=== PATIENT | female | born 1965 | race Caucasian/White ===

== ENCOUNTER 2021-01-22 08:45 | Outpatient (CLI) | payer BC, SELFPAY ==
[2021-01-22 09:08] LABS: Basophils Absolute Auto 0.1 K/mm3 (0.0-0.1); Basophils Percent Auto 0.7 % (0.2-1.2); Eosinophils Absolute Auto 0.3 K/mm3 (0-0.3); Eosinophils Percent Auto 2.8 % (0-4.4); Hematocrit 36.6 % (37.0-47.0); Hemoglobin 11.8 g/dL (12.0-15.0); Immature Granulocyte Absolute 0.03 K/mm3 (0.00-0.031); Immature Granulocyte Percent A 0.3 % (0-0.5); Lymphocytes Absolute Auto 2.36 K/mm3 (0.9-3.2); Lymphocytes Percent Auto 25.6 % (18.3-44.2); Mean Corpuscular HGB Conc 32.2 g/dl (32-36); Mean Corpuscular Hemoglobin 28.3 pg (26-34); Mean Corpuscular Volume 87.8 fl (80-100); Mean Platelet Volume 8.5 fl (7.4-10.4); Monocytes Absolute Auto 0.8 K/mm3 (0.1-0.6); Monocytes Percent Auto 8.6 % (2.6-8.5); Neutrophils Absolute Auto 5.7 K/mm3 (1.3-6.7); Platelet Count Result 461 k/mm3 (150-375); Red Blood Count 4.17 M/mm3 (4.2-5.4); Red Cell Distribution Width 14.2 % (11.5-14.5); White Blood Count 9.2 K/mm3 (4.5-10.0)
[2021-01-22 09:24] LABS: Alanine Aminotransferase 26 U/L (4-35); Albumin Level 4.5 g/dL (3.5-5.1); Alkaline Phosphatase 85 U/L (38-126); Anion Gap 10 mmol/L (8-16); Aspartate Amino Transferase 27 U/L (14-36); Bilirubin,Total 0.4 mg/dL (0.2-1.3); Blood Urea Nitrogen 15 mg/dL (7-17); CRP 1.9 mg/dL (<1.0); Calcium 9.2 mg/dL (8.4-10.2); Carbon Dioxide 29 mmol/L (22-30); Chloride 100 mmol/L (98-107); Estimated Glomerular Filt Rate > 60; Glucose 101 mg/dL (65-110); Potassium 3.4 mmol/L (3.4-5.0); Sodium 139 mmol/L (137-145)
[2021-01-22 09:27] LABS: Hemoglobin A1C 5.7 % (<5.7)
[2021-01-22 09:42] LABS: Add Urine Microscopic? YES; Appearance Urine Cloudy (Clear); Bilirubin Urine Negative (Negative); Blood Urine Negative (Negative); Color Urine Amber (Yellow); Glucose Urine UA Negative (Negative); Hyaline Casts Urine 30-49 /lpf; Ketones Urine Negative (Negative); Leukocyte Esterase Ur Trace LEU/UL (Negative); Mucus Urine Moderate /lpf; Nitrate Urine Negative (Negative); Protein Urine 1+ mg/dL (Negative); Squamous Epithelial Cell Urine Many /hpf (Few); Urobilinogen Urine Negative mg/dL (<2.0)
[2021-01-22 10:07] LABS: Erythrocyte Sedimentation Rate 45 mm/hr (0-20)
[2021-01-22 10:54] LABS: Vitamin D 25 Hydroxy 25.8 ng/mL
[2021-01-22 16:18] LABS: Cholesterol 240 mg/dL (0-200); HDL Direct 70 mg/dL; Triglycerides 154 mg/dL (<150)
[2021-01-22 16:30] LABS: LDL Cholesterol Direct 119 mg/dL
[2021-01-25 05:52] LABS: C-Peptide 1.24 ng/mL (0.80-3.85)
[2021-01-25 21:01] LABS: Homocysteine 7.2 umol/L (<10.4)
[2021-01-26 04:42] LABS: Insulin Level Total 4.4 uIU/mL (<=19.6)
== END 2021-01-22 08:46 | disposition home or self-care (01) ==
LOC: ANHLAB 08:48
PROVIDERS: PCP Internal Medicine; Visit Provider Internal Medicine
DX: Z51.81 Encounter for therapeutic drug level monitoring (principal); Z79.899 Other long term (current) drug therapy; Z78.0 Asymptomatic menopausal state; Z00.00 Encounter for general adult medical examination without abnormal findings
CPT/HCPCS: 36415; 80053; 80061; 81001; 82306; 83036; 83090; 83525; 84439; 84443; 84681; 85025; 85652; 86140; 87086

== ENCOUNTER → 2021-01-25 09:36 | Outpatient (CLI) | payer BC, SELFPAY ==
--- NOTE | ~2021-01-25 | CT_ITS ---
EXAMINATION: CTA chest DATE: 01/25/2021 11:20 INDICATION: Other disorder of the circulatory system, asymmetric blood pressures TECHNIQUE: Computed tomographic angiography (CTA) of the chest was performed with 100 mL Omnipque-350 intravenous contrast. Maximum intensity projection 3D-reconstructions of the aorta and other arterie s were constructed by the technologist on a separate workstation. The dose-length product (DLP) was 4 31.76 mGy-cm. Automated exposure control and iterative reconstruction technique were employed. COMPARISON: None. FINDINGS: The aorta is normal without evidence of dissection or aneurysm. The great vessels are also normal in appearance without stenosis, aneurysm, or dissection. A 3 mm pleural-based nodule is noted in the left lower lobe. There is a 2 mm pleural-based nodule of the right lower lobe. No pleural effu shelbie or pneumothorax is identified. The lungs are free of acute opacities. No pathologically enlarged thoracic lymph nodes are identified. The heart size is normal. There is mild thoracic spondylosis. IMPRESSION: 1. Unremarkable CTA chest. Reviewed, dictated and finalized at location A. IMPRESSION: 1. Unremarkable CTA chest.
--- NOTE | ~2021-01-25 | XR_ITS ---
EXAMINATION: XR lumbar spine 6V w bending DATE: 01/25/2021 10:25 INDICATION: Low back pain TECHNIQUE: Anteroposterior, lateral in neutral, flexion and extension, and bilateral oblique views of the lumbar spine, and cone-down lateral view of the lumbosacral junction were obtained. COMPARISON: None. FINDINGS: Vertebral body alignment is maintained. There is no laxity with flexion or extension. The v ertebral body heights are normal. There is mild loss of intervertebral disc space height at L3-4. The re is no fracture. IMPRESSION: 1. Mild lumbar spondylosis without acute findings. Reviewed, dictated and finalized at location A.
--- NOTE | ~2021-01-25 | CT_ITS ---
EXAMINATION: CT abdomen pelvis wo con DATE: 01/25/2021 11:20 INDICATION: Microscopic hematuria TECHNIQUE: Computed tomography (CT) of the abdomen and pelvis was performed without intravenous contr ast. The dose-length product (DLP) was 281.45 mGy-cm. Automated exposure control and iterative recons truction technique were employed. COMPARISON: None FINDINGS: The lung bases are clear. The heart size is normal. The liver, spleen, pancreas, gallbladde r, and adrenal glands are normal. The kidneys are unremarkable. There is a punctate nonobstructing st one of the right kidney lower pole. No stones are identified in the left kidney, ureters, or bladder. There is no hydronephrosis or hydroureter. No pathologically enlarged abdominal or pelvic lymph node s are identified. There is no free intraperitoneal gas or evidence of bowel obstruction. The appendix is normal. There is mild lumbar spondylosis. There is a tiny fat-containing umbilical hernia. IMPRESSION: 1. No CT correlate for the patient's symptoms. Reviewed, dictated and finalized at location A.
--- NOTE | ~2021-01-25 | XR_ITS ---
EXAMINATION: XR hip BI 2V w AP pelvis DATE: 01/25/2021 10:25 INDICATION: Bilateral hip pain TECHNIQUE: AP view the pelvis and two views of each hip were obtained. COMPARISON: None. FINDINGS: Bone alignment is normal. There is no fracture. There is mild osteoarthritis of the hips. T he soft tissues are unremarkable. IMPRESSION: 1. Mild hip osteoarthritis without acute abnormality. Reviewed, dictated and finalized at location A.
--- NOTE | ~2021-01-25 | XR_ITS ---
EXAMINATION:XR cervical spine min 6V DATE: 01/25/2021 10:25 INDICATION: Neck pain TECHNIQUE: AP, lateral in neutral, flexion, extension, lateral swimmers and odontoid views of the cer vical spine are provided. COMPARISON: None FINDINGS: There are 2 mm of anterolisthesis of C4 on C5. There is no change with flexion and slight i mprovement with extension. The odontoid is intact. No fracture is identified. The vertebral body heig hts are normal. There is moderate loss of intervertebral disc space height at C5-6 and C6-7. Small de generative osteophytes project from the anterior endplates of multiple vertebral bodies. There is mod erate to severe facet and uncovertebral joint osteoarthritis of the mid and lower cervical spine. Pre vertebral soft tissues are normal. IMPRESSION: 1. Moderate cervical spondylosis without acute findings. Reviewed, dictated and finalized at location A.
== END ==
PROVIDERS: PCP Internal Medicine; Visit Provider Internal Medicine
DX: R31.29 Other microscopic hematuria (principal); M47.812 Spondylosis without myelopathy or radiculopathy, cervical region; M47.816 Spondylosis without myelopathy or radiculopathy, lumbar region; M17.0 Bilateral primary osteoarthritis of knee; I99.8 Other disorder of circulatory system
CPT/HCPCS: 71275; 72052; 72114; 73521; 74176; Q9967

== ENCOUNTER 2022-05-28 08:51 | Emergency (ER) | payer BC, SELFPAY ==
--- NOTE | ~2022-05-28 | CT_ITS ---
EXAMINATION: CT cervical spine wo con DATE: 05/28/2022 10:08 INDICATION: Status post fall. Trauma to the back of the head. Persistent dizziness. TECHNIQUE: Computed tomography (CT) of the cervical spine was performed without intravenous contrast. The dose-length product was 257 mGy-cm. Automated exposure control and iterative reconstruction tech nique were employed. COMPARISON: Cervical spine series dated 09/07/2012 FINDINGS: There is disc narrowing and endplate hypertrophy at C5-6 and C6-7. There is degenerative an terolisthesis at C3-4, C4-5 and C7-T1. Odontoid process is normal. Craniovertebral junction is normal . There is moderate multilevel uncinate and facet hypertrophy. Mild levocurvature of the cervical spi ne. Lateral masses normally aligned. No significant paraspinal soft tissue abnormality. There is a 1. 5 cm low-density mass of the right thyroid lobe. Recommend correlation with ultrasound. Lung apices a re unremarkable. No acute fracture or traumatic malalignment. IMPRESSION: 1. No acute abnormality of the cervical spine. 2: Moderate cervical spondylosis. 3: Right thyroid mass measuring 1.5 cm. Recommend correlation with thyroid ultrasound on a nonemergen t basis. Reviewed, dictated and finalized at location A. N END WORKER IMPRESSION: 1. No acute abnormality of the cervical spine. 2: Moderate cervical spondylosis. 3: Right thyroid mass measuring 1.5 cm. Recommend correlation with thyroid ultr asound on a nonemergent basis.
--- NOTE | ~2022-05-28 | CT_ITS ---
EXAMINATION: CT brain wo con DATE: 05/28/2022 10:08 INDICATION: Fall 2 days ago. Head injury. Dizziness. TECHNIQUE: Computed tomography (CT) of the head was performed without intravenous contrast. The mA wa s adjusted according to patient size. Iterative reconstruction technique was employed. Exam dose: 60 5.33 mGy-cm total exam DLP. COMPARISON: August 08, 2013 CT brain FINDINGS: No intracranial mass lesion or hemorrhage or cerebrovascular accident is detected. No midli ne shift or mass effect. Normal ventricular size. No subdural or epidural hematoma is detected. The mastoid air cells and included paranasal sinuses are normally developed and aerated. Middle and inner ear apparatus are unremarkable. No skull fracture or bone destruction is detected. IMPRESSION: No significant abnormality Reviewed, dictated and finalized at Location A. Reviewed, dictated and finalized at location B. HOLOGIST IMPRESSION: No significant abnormality
[2022-05-28 09:11] VITALS: BP 159/89; PULSE 104; RESP 16; TEMP 36.6; O2SAT 98
--- NOTE | 2022-05-28 09:37 | ED.HEATRA ---
HPI - Head Injury General Chief complaint: Head Injury Stated complaint: fell and hit head, dizzy Time Seen by Provider: 05/28/22 08:56 Source: patient Mode of arrival: ambulatory Limitations: no limitations History of Present Illness HPI Narrative: Patient is a 57-year-old female who presents the ED with report of head injury. Patient reports she tripped over another person on Thursday while trying to unload her trunk. She fell backwards, hitting her head against the concrete. No LOC. She had a small contusion to her left posterior scalp, which has improved. Thursday, she reported having an episode of mild blurry vision in her left eye. She states this resolved within 1 hour on its own. She had intermittent HAs that day. Early this morning around 3 AM, she woke up to use the restroom and had dizziness at that time. She states it felt like room spinning, like she had to hold onto something to avoid falling again. She woke up this morning feeling better, but wanted to be evaluated. Does complain of mild dizziness currently. No nausea, vomiting, chest pain, neck pain, difficulty breathing, further vision changes, syncope, weakness, confusion. Related Data Home Medications Medication Instructions Recorded Confirmed alprazolam 0.25 mg tablet 0.25 mg PO DAILY 01/16/21 03/12/22 bupropion HCl 300 mg 24 hr tablet, 300 mg PO QAM 01/16/21 03/12/22 extended release venlafaxine 75 mg capsule,extended 75 mg PO DAILY 01/16/21 03/12/22 release 24 hr zolpidem 10 mg tablet 10 mg PO QHS PRN Insomnia 01/16/21 03/12/22 alprazolam 0.25 mg tablet mg 05/28/22 05/28/22 bupropion HCl 300 mg 24 hr tablet, mg PO 05/28/22 extended release lamotrigine 150 mg tablet mg 05/28/22 venlafaxine 150 mg mg PO 05/28/22 capsule,extended release 24 hr Allergies Allergy/AdvReac Type Severity Reaction Status Date / Time amoxicillin AdvReac Intermediate Hives Verified 05/28/22 09:18 Sulfa (Sulfonamide AdvReac Intermediate Hives Verified 05/28/22 09:18 Antibiotics) Review of Systems Review of Systems: CONSTITUTIONAL: Denies fever, chills, or sweats. EYES: Reports blurry vision, resolved. CARDIOVASCULAR: Denies chest pain. RESPIRATORY: Denies dyspnea. GASTROINTESTINAL: Denies abdominal pain, nausea, vomiting. MUSCULOSKELETAL: Denies neck pain, back pain. NEUROLOGIC: Reports HI, VALLJEO, dizziness. Denies LOC, syncope, confusion, numbness, or weakness. All systems reviewed & are unremarkable except as noted in HPI and below PMFSH Past Medical History Medical History (Updated 05/28/22 @ 10:25 by Kayce Aguilera PA-C) BMI 27.0-27.9,adult BMI 28.0-28.9,adult Elevated hemoglobin A1c Encounter for preventive health examination Follow up Microscopic hematuria PMR (polymyalgia rheumatica) Surgical History Surgical History (Updated 05/28/22 @ 11:10 by Kayce Aguilera PA-C) History of colonoscopy S/P LASIK surgery of both eyes Family History Family History Father Hypertension Family history of coronary artery disease Cerebrovascular accident Mother Hypertension Sibling Family history of lung cancer, Onset Age: 49 Patient's brother is Social History Social History Smoking status: Former smoker Second hand tobacco smoke exposure: No Smoking end date: 06/29/07 Alcohol intake: current Exam Narrative: GENERAL: Well appearing, well-nourished, non-toxic, in no acute distress. HEAD: Normocephalic, atraumatic. No significant contusion/hematomas. EYES: PERRL/EOMI, conjunctivae clear bilaterally. No nystagmus. EARS: TMS clear, with good light reflex. No erythema or bulging. No cerumen impaction. NECK: Supple. No adenopathy, no masses. No significant midline spinal tenderness. RESPIRATORY: Airway patent, respirations nonlabored. Clear to auscultation bilaterally, no rales, rhonchi, wheez
[2022-05-28] MEDS: MECLIZINE HCL 25 MG TABLET PO (10:20)
== END 2022-05-28 11:17 | disposition home or self-care (01) ==
PROVIDERS: Emergency Provider Physician Assistant; PCP Internal Medicine
DX: S06.0X0A Concussion without loss of consciousness, initial encounter (principal); R42 Dizziness and giddiness; D44.0 Neoplasm of uncertain behavior of thyroid gland; W01.0XXA Fall on same level from slipping, tripping and stumbling without subsequent striking against object, initial encounter
CPT/HCPCS: 70450; 72125; 99284; A9270

== ENCOUNTER 2022-07-15 21:14 | Emergency (ER) | payer BC, SELFPAY ==
--- NOTE | ~2022-07-15 | XR_ITS ---
EXAMINATION: XR chest 2V DATE: 07/15/2022 22:13 INDICATION: Altered mental status. TECHNIQUE: Frontal and lateral views of the chest were obtained. COMPARISON: Chest CT 01/25/2021 FINDINGS: There is no pneumonia, pleural effusion, or pneumothorax. The heart size is normal. IMPRESSION: 1. No acute cardiopulmonary disease. Reviewed, dictated and finalized at location A. 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
[2022-07-15 21:16] VITALS: BP 188/99; PULSE 110; RESP 16; TEMP 36.8; O2SAT 95
[2022-07-15 21:23] LABS: Glucose Point of Care 114 mg/dl (65-105)
--- NOTE | 2022-07-15 21:57 | PC.NURSE ---
Poison control called, as pt cannot recall what subtances she may have taken. She knows she definitely took zolpidem but does not know the dose. Kristin nurse at Poison control states that she will fax information about zolpedem and to treat the pt with symptom management.
[2022-07-15 22:06] LABS: Appearance Urine Clear (Clear); Bilirubin Urine 1+ (Negative); Blood Urine Trace-intact (Negative); Color Urine Yellow (Yellow); Glucose Urine UA Negative (Negative); Ketones Urine Negative (Negative); Leukocyte Esterase Ur Negative LEU/UL (Negative); Nitrate Urine Negative (Negative); Protein Urine 2+ mg/dL (Negative); Specific Grav Ur >= 1.030 (1.001-1.035); Urobilinogen Urine 0.2 mg/dL (<2.0); pH Urine 5.5 (5.0-9.0)
[2022-07-15 22:07] LABS: Basophils Absolute Auto 0.1 K/mm3 (0.0-0.1); Basophils Percent Auto 0.6 % (0.2-1.2); Eosinophils Percent Auto 0.5 % (0-4.4); Hematocrit 40.5 % (37.0-47.0); Hemoglobin 13.7 g/dL (12.0-15.0); Immature Granulocyte Absolute 0.02 K/mm3 (0.00-0.031); Immature Granulocyte Percent A 0.2 % (0-0.5); Lymphocytes Absolute Auto 2.05 K/mm3 (0.9-3.2); Lymphocytes Percent Auto 23.6 % (18.3-44.2); Mean Corpuscular HGB Conc 33.8 g/dl (32-36); Mean Corpuscular Volume 85.6 fl (80-100); Mean Platelet Volume 8.6 fl (7.4-10.4); Monocytes Absolute Auto 0.8 K/mm3 (0.1-0.6); Monocytes Percent Auto 9.3 % (2.6-8.5); Neutrophils Absolute Auto 5.7 K/mm3 (1.3-6.7); Neutrophils Percent Auto 65.8 % (45.5-73.1); Platelet Count Result 417 k/mm3 (150-375); Red Blood Count 4.73 M/mm3 (4.2-5.4); Red Cell Distribution Width 13.4 % (11.5-14.5); White Blood Count 8.7 K/mm3 (4.5-10.0)
[2022-07-15 22:15] LABS: Ethanol < 10 mg/dL (<10)
[2022-07-15 22:15] LABS: Mucus Urine Few /lpf; RBC Urine 0-2 /hpf (0-2); Squamous Epithelial Cell Urine Occasional /hpf (Few); WBC Urine 0-3 /hpf
[2022-07-15 22:16] LABS: Alanine Aminotransferase 28 U/L (6-35); Albumin Level 4.8 g/dL (3.5-5.1); Alkaline Phosphatase 75 U/L (38-126); Anion Gap 8 mmol/L (8-16); Aspartate Amino Transferase 28 U/L (14-36); Bilirubin,Total 0.5 mg/dL (0.2-1.3); Blood Urea Nitrogen 15 mg/dL (7-17); Carbon Dioxide 27 mmol/L (22-30); Chloride 98 mmol/L (98-107); Estimated CRCL calculation 64 ml/min; Estimated Glomerular Filt Rate > 60; Glucose 106 mg/dL (65-110); Potassium 3.1 mmol/L (3.4-5.0); Sodium 133 mmol/L (137-145)
[2022-07-15 22:20] LABS: Add Urine Microscopic? YES
[2022-07-15 22:29] LABS: Amphetamine Screen Urine Negative (Negative); Barbiturate Screen Urine Negative (Negative); Benzodiazepines Screen Urine Negative (Negative); Cannabinoid Screen Urine Negative (Negative); Cocaine Screen Urine Negative (Negative); Methadone Screen Urine Negative (Negative); Opiate Screen Urine Negative (Negative); Phencyclidine Screen Urine Negative (Negative)
[2022-07-15] MEDS: SODIUM CHLORIDE 0.9% IV 1,000 ML 999 ML IV CONT (22:50)
--- NOTE | 2022-07-15 23:59 | ED.GENADULT ---
HPI - General Adult General Chief complaint: Altered Mental Status Stated complaint: psych Time Seen by Provider: 07/15/22 21:20 History of Present Illness HPI narrative: Patient is a 57-year-old female who presents ER with concerns of hallucinations. Patient was at her home and apparently took her evening Ambien and then went to have a cocktail. She then has no recollection. Apparently she was wandering around outside telling her neighbor she was seeing ghosts. Police arrived and asked for her to be medically evaluated. Patient's is present, they are currently , he reports is not happened to her before. Patient is alert and oriented x3 and is having no hallucinations at this time. Patient denies SI or HI. Related Data Home Medications Medication Instructions Recorded Confirmed alprazolam 0.25 mg tablet 0.25 mg PO DAILY 01/16/21 03/12/22 bupropion HCl 300 mg 24 hr tablet, 300 mg PO QAM 01/16/21 03/12/22 extended release venlafaxine 75 mg capsule,extended 75 mg PO DAILY 01/16/21 03/12/22 release 24 hr zolpidem 10 mg tablet 10 mg PO QHS PRN Insomnia 01/16/21 03/12/22 alprazolam 0.25 mg tablet mg 05/28/22 05/28/22 bupropion HCl 300 mg 24 hr tablet, mg PO 05/28/22 extended release lamotrigine 150 mg tablet mg 05/28/22 venlafaxine 150 mg mg PO 05/28/22 capsule,extended release 24 hr Allergies Allergy/AdvReac Type Severity Reaction Status Date / Time amoxicillin AdvReac Intermediate Hives Verified 05/28/22 09:18 Sulfa (Sulfonamide AdvReac Intermediate Hives Verified 05/28/22 09:18 Antibiotics) Review of Systems Review of Systems: All systems reviewed & are unremarkable except as noted in HPI and below Constitutional: Constitutional: Denies chills, Denies fatigue and Denies fever(s) ENT: Denies nasal congestion and Denies sore throat Cardiovascular: Cardiovascular: Denies chest pain and Denies rapid heart rate Gastrointestinal: Gastrointestinal: Denies abdominal pain, Denies nausea and Denies vomiting Neurologic: Reports system reviewed and no additional complaints, except as documented and Reports confusion Psychiatric: Psychiatric: Denies anxiety, Denies depression, Denies homicidal ideation and Denies suicidal ideation PMFSH Past Medical History Medical History (Updated 07/16/22 @ 00:01 by Dong Cai MD) BMI 27.0-27.9,adult BMI 28.0-28.9,adult Elevated hemoglobin A1c Encounter for preventive health examination Follow up Microscopic hematuria PMR (polymyalgia rheumatica) Surgical History Surgical History (Updated 05/28/22 @ 11:10 by Kayce Aguilera PA-C) History of colonoscopy S/P LASIK surgery of both eyes Family History Family History Father Hypertension Family history of coronary artery disease Cerebrovascular accident Mother Hypertension Sibling Family history of lung cancer, Onset Age: 49 Patient's brother is Social History Social History Smoking status: Former smoker Second hand tobacco smoke exposure: No Smoking end date: 06/29/07 Alcohol intake: current Exam Narrative: GENERAL: Well-appearing, well-nourished, and in no acute distress. HEAD: Normocephalic, atraumatic. EYES: PERRL and EOMI. ENT: Mucous membranes moist. CHEST: Clear to auscultation. No respiratory distress. HEART: Regular rate and rhythm. Normal peripheral pulses. ABDOMEN: Soft, nontender, nondistended. EXTREMITIES: Normal range of motion. No edema. SKIN: Warm, dry, no rash. NEURO: Alert and oriented x3. PSYCH: Normal mood and affect. Course Course Emergency Course: Patient resting comfortably. No altered mental status here lab work without acute process requiring intervention. No infection. No other intoxicants on board. Patient will be discharged. Vital Signs Vital signs: Vital Signs Temperature 98
[2022-07-16] VITALS: BP 110/64; PULSE 102; RESP 20; TEMP 36.7; O2SAT 97
--- NOTE | 2022-07-16 21:20 | ECG_ITS ---
Measurements Intervals [place] Rate: 109 P: 49 WA: 137 QRS: 39 QRSD: 105 T: -3 QT: 372 QTc: 503 Interpretive Statements SINUS TACHYCARDIA MINIMAL Q WAVES- INFERIOR LEADS ST-T WAVE ABNORMALITY IN ANTEROLATERAL LEADS- CONSIDER ISCHEMIA ABNORMAL ECG NO PREVIOUS ECG AVAILABLE FOR COMPARISON Electronically Signed On 07-21-2022 10:49:31 PROGRAM DEVELOPER by Kameron Thompson D.O.
== END 2022-07-16 | disposition home or self-care (01) ==
PROVIDERS: Emergency Provider Emergency Medicine; PCP Internal Medicine
DX: R41.0 Disorientation, unspecified (principal); R03.0 Elevated blood-pressure reading, without diagnosis of hypertension; M35.3 Polymyalgia rheumatica; Z87.891 Personal history of nicotine dependence
CPT/HCPCS: 36415; 71046; 80053; 80307; 81001; 82948; 85025; 93005; 99283; J7030